=== PATIENT | female | born 2000 | race Caucasian/White ===

== ENCOUNTER 2022-12-14 18:41 | Emergency (ER) | payer BC ==
[~2022-12-14] VITALS: Ht 162.6 cm; Wt 81.7 kg
[2022-12-14 18:49] VITALS: BP 138/84
== END 2022-12-14 19:46 | disposition home or self-care (01) ==
LOC: ER 18:41
DX: U07.1 COVID-19 (principal); Z88.0 Allergy status to penicillin; Z88.2 Allergy status to sulfonamides; Z88.1 Allergy status to other antibiotic agents
CPT/HCPCS: 99284

== ENCOUNTER 2023-01-08 10:44 | Emergency (ER) | payer OTHER ==
[~2023-01-08] VITALS: Ht 162.6 cm; Wt 81.7 kg
[2023-01-08 10:54] VITALS: BP 142/80
== END 2023-01-08 11:53 | disposition home or self-care (01) ==
LOC: ER 10:44
DX: J06.9 Acute upper respiratory infection, unspecified (principal); Z20.822 Contact with and (suspected) exposure to COVID-19; Z88.0 Allergy status to penicillin; Z88.2 Allergy status to sulfonamides
CPT/HCPCS: 99283

== ENCOUNTER 2023-01-13 11:32 | Emergency (ER) | payer OTHER ==
[~2023-01-13] VITALS: Ht 162.6 cm; Wt 80.7 kg
[2023-01-13] MEDS ORDERED: AMOCLA875 PO (15:20)
[2023-01-13 15:50] VITALS: BP 127/74
== END 2023-01-13 15:50 | disposition home or self-care (01) ==
LOC: ER 11:32
DX: J06.9 Acute upper respiratory infection, unspecified (principal); J32.9 Chronic sinusitis, unspecified; Z88.0 Allergy status to penicillin; Z88.2 Allergy status to sulfonamides
CPT/HCPCS: 99282

== ENCOUNTER 2023-01-29 20:18 | Emergency (ER) | payer OTHER ==
[~2023-01-29] VITALS: Ht 162.6 cm; Wt 81.7 kg
[~2023-01-29 20:18] MED LIST: AMOCLA875 PO
[2023-01-29 20:27] VITALS: BP 158/85
== END 2023-01-29 21:52 | disposition home or self-care (01) ==
LOC: ER 20:18
DX: T54.3X1A Toxic effect of corrosive alkalis and alkali-like substances, accidental (unintentional), initial encounter (principal)
CPT/HCPCS: 99282

== ENCOUNTER 2023-02-28 12:39 | Emergency (ER) | payer OTHER ==
[~2023-02-28] VITALS: Ht 162.6 cm; Wt 81.7 kg
[2023-02-28 13:25] VITALS: BP 125/77
== END 2023-02-28 17:19 | disposition home or self-care (01) ==
LOC: ER 12:39
DX: R07.9 Chest pain, unspecified (principal); R55 Syncope and collapse; F41.9 Anxiety disorder, unspecified; Z88.0 Allergy status to penicillin; Z88.8 Allergy status to other drugs, medicaments and biological substances
CPT/HCPCS: 71046; 82947; 93005; 93010; 99285-25